=== PATIENT | female | born 1985 | race Caucasian/White ===

== ENCOUNTER 2016-08-10 18:17 | Emergency (ER) | payer MEDICAID ==
[~2016-08-10] VITALS: Wt 80.0 kg
--- NOTE | 2016-08-10 21:07 | ERD ---
ER Documentation Chief Complaint Date/Time DATE: 08/10/16 TIME: 21:03 Chief Complaint pelvic pain HPI Patient is a 30-year-old female, , who presents emergency department with pelvic pain. Patient states her pain has been localized to the suprapubic region for the last 2 days. Patient denies any vaginal bleeding or excessive vaginal discharge. Patient was referred to the ER by her [facility] doctor payment for an ultrasound. Patient is complaining of some nausea and vomiting. Patient states that she has 2 episodes of nonbloody nonbilious vomiting today. Patient denies any fever, chills, chest pain, shortness of breath, abdominal pain or loss of consciousness. Patient states her last menstrual period was on June 17, 2015. ROS All systems reviewed and are negative except as per history of present illness. Medications Home Meds Active Scripts Metoclopramide* (Reglan*) 10 Mg Tablet, 10 MG PO Q6 Y for NAUSEA AND/OR VOMITING , #10 TAB Prov:ANA GOMEZ PA-C 08/10/16 Allergies Allergies: Coded Allergies: No Known Allergy (Unverified , 08/10/16) PMhx/Soc History of Surgery: No Anesthesia Reaction: No Hx Neurological Disorder: No Hx Respiratory Disorders: No Hx Cardiac Disorders: No Hx Psychiatric Problems: No Hx Miscellaneous Medical Probl: No Hx Alcohol Use: No Hx Substance Use: No Hx Tobacco Use: No Physical Exam Vitals Vital Signs Date Time Temp Pulse Resp B/P Pulse Ox O2 Delivery O2 Flow Rate FiO2 08/10/16 23:56 98.5 78 122/68 100 Room Air 08/10/16 18:57 99.3 88 20 130/68 98 Physical Exam GENERAL: Well-developed, well-nourished female. Appears in no acute distress. HEAD: Normocephalic, atraumatic. EYES: Pupils are equally reactive bilaterally. EOMs grossly intact. No conjunctival erythema. ENT: Moist mucous membranes. No uvula deviation. No kissing tonsils. NECK: Supple. No meningismus. Normal range of motion of the neck. LUNG: Clear to auscultation bilaterally. No rhonchi, wheezing, rales or coarse breath sounds. HEART: Regular rate and rhythm. No murmurs, rubs or gallops. ABDOMEN: No scars, ecchymosis or rashes noted. Soft and nondistended. Tender to palpation in suprapubic region. Positive bowel sounds in all four quadrants. No rebound tenderness, no guarding. (-) McBurney's point tenderness. No CVA tenderness. BACK: No midline tenderness. EXTREMITIES: Equal pulses bilaterally. No peripheral clubbing, cyanosis or edema. No unilateral leg swelling. NEUROLOGIC: Alert and oriented. Moving all four extremities without any difficulty. Normal speech. Steady gait. SKIN: Normal color. Warm and dry. No rashes or lesions. Result Diagram: 08/10/162137 Results 24 hrs Laboratory Tests Test 08/10/16 21:32 08/10/16 21:38 Bedside Urine Blood Negative Bedside Urine Glucose (UA) Negative Bedside Urine Ketones (LAB) Negative Bedside Urine Leukocyte Esterase (L Negative Bedside Urine Nitrite (LAB) Negative Bedside Urine Protein (LAB) Negative Bedside Urine pH (LAB) 7.0 Basophils # 0.010^3/ul Basophils % 0.5% Beta HCG, Quantitative 53324.0mIU/ml Eosinophils # 0.110^3/ul Eosinophils % 1.2% Hematocrit 33.8% Hemoglobin 11.5g/dl Lymphocytes # 2.410^3/ul Lymphocytes % 28.0% Mean Corpuscular Hemoglobin 30.5pg Mean Corpuscular Hemoglobin Concent 34.0g/dl Mean Corpuscular Volume 89.7fl Mean Platelet Volume 10.4fl Monocytes # 0.510^3/ul Monocytes % 5.4% Neutrophils # 5.610^3/ul Neutrophils % 64.6% Nucleated Red Blood Cells # 0.010^3/ul Nucleated Red Blood Cells % 0.0/100WBC Platelet Count 42869^3/UL Red Blood Count 3.7710^6/ul Red Cell Distribution Width 13.4% White Blood Count 8.610^3/ul Current Medications Medications (Trade) Dose Ordered Sig/Elier Route PRN Reason Start Time Stop Time Status Last Admin Dose Admin Metoclopramide HCl (Reglan) 10 mg ONCE ONCE PO 08/10/16 21:30 08/10/16 21:31 DC 08/10/16 21:37 Procedures/MDM ED COURSE: The patient was stable throughout ED course. I kept the patient and/or family informed of laboratory and diagnostic imaging results throughout the ED course. DIAGNOSTIC IMAGING: Read by radiologist. DIAGNOSTIC IMAGING REPORT Patient: DEB BURNETTE : 1985 Age: 30 Sex: F MR #: [id number] DOS: 08/10/16 210 Ordering MD: ANA GOMEZ PA-C Location: [facility] Room/Bed: PROCEDURE: US OB. CLINICAL INDICATION: Pelvic pain TECHNIQUE: Transabdominal and transvaginal views of the pelvis are available for review. COMPARISON: No prior studies are available for comparison. FINDINGS: Intrauterine gestational sac, yolk sac and pole of the following information: [place]-rump length: 0.43 cm heart rate: NOT DETECTED Gestational sac: 2.09 cm Ultrasound estimated gestational age: 6 weeks 4 days Crescentic hypoechoic area adjacent to the gestational sac is estimated at 1.2 x 1 cm consistent with a small subchorionic hemorrhage The right ovary is normal estimated 2.7 x 2.4 x 2.3 cm with normal blood flow. The left ovary is not visualized. There is no free fluid. RPTAT:HJJR IMPRESSION: 1. No detectable heart beat concerning for embryonic demise at an estimated gestational age of 6 weeks 4 days. Follow-up serial serum beta HCG levels and possibly follow-up pelvic ultrasound is recommended. 2. Small subchorionic hemorrhage of approximately 1.2 x 1 cm. Physician Nuvia Date Time Electronically viewed and signed by Physician Nuvia on 08/10/2016 21:57 JR/ CC: ANA GOMEZ PA-C MEDICAL DECISION MAKING: This is a 30-year-old female who presents with pelvic pain 2 days. Vital signs were reviewed. Patient was afebrile. Patient was hemodynamically stable. Urine test was positive. CBC showed hemoglobin level of 11.5 , hematocrit of 33.8. This is consistent with slight anemia. Quantitative b- HCG was 24134. She was A+. No Rhogam was given. Pelvic US showed no detectable heart beat concerning for embryonic demise at an estimated gestational age of 6 weeks 4 days. Follow-up serial serum beta HCG levels and possibly follow-up pelvic ultrasound is recommended. Small subchorionic hemorrhage of approximately 1.2 x 1 cm. Given these findings, the patient's presentation is most consistent with threatened vs demise and subchorionic hemorrhage. Patient was advised that she will have to follow-up with her [facility] in 2 days for repeat pelvic ultrasound, beta-hCG level and possible D&C. I have a much lower clinical concern for ectopic , ruptured ectopic , molar , spontaneous , anembyronic . Unable to rule out incomplete . PRESCRIPTIONS: Reglan DISCHARGE: At this time, patient is stable for discharge and outpatient management. I had a conversation at length with the patient about the concerns of pelvic during the 1st trimester of . I discussed the patient's ultrasound findings with her. Patient understands the ultrasound findings could represent demise. I have instructed the patient to follow-up with her OBGYN in 1-2 days for further monitoring including a repeat b-HCG level and pelvic ultrasound as advised by radiologist. Patient understands that she may need a D&C. I have instructed the patient to promptly return to the ER at any time for any new or worsening symptoms including increased pain, nausea, vomiting, continued bleeding, weakness, syncope or fever. The patient and/or family expressed understanding of and agreement with this plan. All questions were answered. Home care instructions were provided. Departure Diagnosis: Primary Impression: Pelvic pain affecting Additional Impressions: demise Subchorionic hematoma Fetus number: single or unspecified fetus Trimester: unspecified trimester Qualified Code: O41.8X90 - Subchorionic hematoma, unspecified trimester, not applicable or unspecified fetus Condition: Stable Patient Instructions: Pelvic Pain In : Unclear (2-3 Trimester) Referrals: COMMUNITY CLINICS YOU HAVE RECEIVED A MEDICAL SCREENING EXAM AND THE RESULTS INDICATE THAT YOU DO NOT HAVE A CONDITION THAT REQUIRES URGENT TREATMENT IN THE EMERGENCY DEPARTMENT. FURTHER EVALUATION AND TREATMENT OF YOUR CONDITION CAN WAIT UNTIL YOU ARE SEEN IN YOUR DOCTORS OFFICE WITHIN THE NEXT 1-2 DAYS. IT IS YOUR RESPONSIBILITY TO MAKE AN APPOINTMENT FOR FOLOW-UP CARE. IF YOU HAVE A PRIMARY DOCTOR --you should call your primary doctor and schedule an appointment IF YOU DO NOT HAVE A PRIMARY DOCTOR YOU CAN CALL OUR PHYSICIAN REFERRAL HOTLINE AT IF YOU CAN NOT AFFORD TO SEE A PHYSICIAN YOU CAN CHOSE FROM THE FOLLOWING [facility] [address] [facility] [address] [facility] [phone] [facility] [address] [facility] [address] [facility]. [facility]. [address] [facility]. [facility] YOU HAVE RECEIVED A MEDICAL SCREENING EXAM AND THE RESULTS INDICATE THAT YOU DO NOT HAVE A CONDITION THAT REQUIRES URGENT TREATMENT IN THE EMERGENCY DEPARTMENT. FURTHER EVALUATION AND TREATMENT OF YOUR CONDITION CAN WAIT UNTIL YOU ARE SEEN IN YOUR DOCTORS OFFICE WITHIN THE NEXT 1-2 DAYS. IT IS YOUR RESPONSIBILITY TO MAKE AN APPOINTMENT FOR FOLOW-UP CARE. IF YOU HAVE A PRIMARY DOCTOR --you should call your primary doctor and schedule and appointment IF YOU DO NOT HAVE A PRIMARY DOCTOR YOU CAN CALL OUR PHYSICIAN REFERRAL HOTLINE AT . IF YOU CAN NOT AFFORD TO SEE A PHYSICIAN YOU CAN CHOSE FROM THE FOLLOWING [facility] INSTITUTIONS: [facility] [address] [place] [address] [facility] [address] [place] [address] [facility] [address] [place] [address] [facility] [employer] [place] [address] [facility] [address] [place], [place] [phone] OFFICE FAX VICTORIA PETTIT [address] [place] [address] [address] [address] [place], [place] [phone] JOE VAZQUEZ [address] [address] [address] [facility] [place] [id number] [facility] [address] [place] [phone] [facility] [address] [address] [facility] [address] [address]ELBY, [place] [address] [facility]. [address], [facility] [address] [address] CAREY, [facility] [address] [place] [address] Additional Instructions: Call your primary care doctor/OBGYN TOMORROW for an appointment during the next 1-2 days.See the doctor sooner or return here if your condition worsens before your appointment time. ANA GOMEZ PA-C Aug 10, 2016 21:06
[2016-08-10] MEDS ORDERED: METOCLOPRAMIDE 10 MG TAB PO ONE (21:30)
[2016-08-10 21:35] LABS: URINE BLOOD (Dip) POC Negative (NEGATIVE)
--- NOTE | 2016-08-10 21:57 | RADRPT ---
PROCEDURE: US OB. CLINICAL INDICATION: Pelvic pain TECHNIQUE: Transabdominal and transvaginal views of the pelvis are available for review. COMPARISON: No prior studies are available for comparison. FINDINGS: Intrauterine gestational sac, yolk sac and pole of the following information: [place]-rump length:0.43 cm heart rate:NOT DETECTED Gestational sac:2.09 cm Ultrasound estimated gestational age:6 weeks 4 days [place] hypoechoic area adjacent to the gestational sac is estimated at 1.2 x 1 cm consistent wit h a small subchorionic hemorrhage The right ovary is normal estimated 2.7 x 2.4 x 2.3 cm with normal blood flow. The left ovary is no t visualized. There is no free fluid. RPTAT:HJJR IMPRESSION: 1. No detectable heart beat concerning for embryonic demise at an estimated gestational age of 6 we eks 4 days. Follow-up serial serum beta HCG levels and possibly follow-up pelvic ultrasound is rec ommended. 2. Small subchorionic hemorrhage of approximately 1.2 x 1 cm. Physician Nuvia Date Time Electronically viewed and signed by Physician Nuvia on 08/10/2016 21:57 /
[2016-08-10 22:04] LABS: ADD SCAN DIFF NO
[2016-08-10 22:06] LABS: BASOPHILS % 0.5 % (0.0-2.0); EOSINOPHILS # 0.1 10^3/ul (0.0-0.5); EOSINOPHILS % 1.2 % (0.0-7.0); HEMATOCRIT 33.8 % (37.0-47.0); HEMOGLOBIN 11.5 g/dl (12.0-16.0); LYMPHOCYTES # 2.4 10^3/ul (0.8-2.9); MEAN CORPUSCULAR HEMOGLOBIN 30.5 pg (29.0-33.0); MEAN CORPUSCULAR VOLUME 89.7 fl (82.0-101.0); MEAN PLATELET VOLUME 10.4 fl (7.4-10.4); MONOCYTE # 0.5 10^3/ul (0.3-0.9); MONOCYTES % 5.4 % (0.0-11.0); NEUTROPHIL # 5.6 10^3/ul (1.6-7.5); NEUTROPHILS % 64.6 % (39.0-77.0); PLATELET COUNT 227 10^3/UL (140-415); RED BLOOD COUNT 3.77 10^6/ul (4.20-5.40); RED CELL DISTRIBUTION WIDTH 13.4 % (11.5-14.5); WHITE BLOOD COUNT 8.6 10^3/ul (4.8-10.8)
[2016-08-10] MEDS ORDERED: METO10TA92 PO (23:37)
[2016-08-10 23:56] VITALS: BP 122/68; PULSE 78; TEMP 98.5
== END 2016-08-11 00:07 | disposition home or self-care (01) ==
LOC: FTE 18:17
DX: O26.891 Other specified pregnancy related conditions, first trimester (principal); O02.1 Missed abortion; O41.8X10 Other specified disorders of amniotic fluid and membranes, first trimester, not applicable or unspecified; R10.2 Pelvic and perineal pain; Z3A.01 Less than 8 weeks gestation of pregnancy
CPT/HCPCS: 36415; 76801; 76817; 81003; 84702; 85025; 86900; 86901; Z7502; Z7610

== ENCOUNTER 2017-05-09 18:21 | Emergency (ER) | payer MEDICAID ==
[~2017-05-09] VITALS: Ht 170.2 cm; Wt 79.0 kg
[~2017-05-09 18:21] MED LIST: METO10TA92 PO
[2017-05-09 19:26] VITALS: Ht 170.2 cm; Wt 79.0 kg
[2017-05-09 22:19] LABS: ADD UMIC NO; UR ASCORBIC ACID NEGATIVE (NEGATIVE); UR BILIRUBIN (Dip) NEGATIVE (NEGATIVE); UR BLOOD (Dip) NEGATIVE (NEGATIVE); UR CLARITY CLEAR (CLEAR); UR COLOR YELLOW (YELLOW); UR GLUCOSE (Dip) NEGATIVE (NEGATIVE); UR KETONES (Dip) NEGATIVE (NEGATIVE); UR LEUKOCYTE ESTERASE (Dip) NEGATIVE Leu/ul (NEGATIVE); UR NITRITE (Dip) NEGATIVE (NEGATIVE); UR SPECIFIC GRAVITY (Dip) 1.012 (1.003-1.030); UR TOTAL PROTEIN (Dip) NEGATIVE (NEGATIVE); UR UROBILINOGEN (Dip) NEGATIVE (NEGATIVE)
--- NOTE | 2017-05-09 22:30 | RADRPT ---
PROCEDURE: US OB. CLINICAL INDICATION: Pelvic pain. Possible IUD. TECHNIQUE: Transabdominal sonographic evaluation of the pelvis using sanchez scale and color Doppler i maging was performed. COMPARISON: Exam is 08/10/2016. FINDINGS: A single intrauterine with a gestational sac and pole is identified. The crown-rump length equals 4.72 cm. The estimated gestational age equals 11 weeks 4 days by ultrasound criteria. Normal cardiac activity is identified with a HR of 188 bpm. There is a small subchorionic hemorrhage measuring 2 x 0.4 x 1.0 cm. Right ovary: 5.0 x 2.6 x 3.7 cm. Simple appearing cyst measuring 2 cm. Otherwise normal in size and echogenicity. Left ovary: 4.0 x 1.9 x 2.5 cm. Normal flow and echogenicity IMPRESSION: 1. Single viable intrauterine with an estimated gestational age of 11 weeks 4 days by ult rasound criteria and an estimated date of delivery of 11/24/2017. 2. Small subchorionic hemorrhage measuring 2 x 0.4 x 1 cm. Short interval follow-up is recommended. 3. Simple appearing 2 cm right ovarian cyst. RPTAT: HLBP .Hector Mcadams MD, MD Date Time Electronically viewed and signed by .Hector Mcadams MD, on 05/09/2017 22:30 .P/
[2017-05-10 00:22] LABS: BASOPHILS % 0.5 % (0.0-2.0); EOSINOPHILS # 0.1 10^3/ul (0.0-0.5); EOSINOPHILS % 0.8 % (0.0-7.0); HEMATOCRIT 34.4 % (37.0-47.0); LYMPHOCYTES # 2.6 10^3/ul (0.8-2.9); LYMPHOCYTES % 30.8 % (15.0-51.0); MEAN CORPUSCULAR HEMOGLOBIN 30.8 pg (29.0-33.0); MEAN CORPUSCULAR HGB CONC 34.9 g/dl (32.0-37.0); MEAN CORPUSCULAR VOLUME 88.4 fl (82.0-101.0); MEAN PLATELET VOLUME 10.3 fl (7.4-10.4); MONOCYTE # 0.5 10^3/ul (0.3-0.9); MONOCYTES % 5.5 % (0.0-11.0); NEUTROPHIL # 5.3 10^3/ul (1.6-7.5); PLATELET COUNT 219 10^3/UL (140-415); RED BLOOD COUNT 3.89 10^6/ul (4.20-5.40); RED CELL DISTRIBUTION WIDTH 13.2 % (11.5-14.5); WHITE BLOOD COUNT 8.5 10^3/ul (4.8-10.8)
--- NOTE | 2017-05-10 01:50 | ERD ---
ER Documentation Chief Complaint Chief Complaint referral from md office for ultrasound for iud placement check 11 wks preg HPI 31-year-old female presenting to the ER for ultrasound. Patient was sent by her PMD for a pelvic ultrasound. Patient is 11 weeks and was unsure if she had an IUD placed within the pelvic region. LNMP February 17. A1. Denies vaginal bleeding. Patient was sent by Dr. Jain. Denies vomiting. Denies bleeding. Denies pelvic pain. ROS All systems reviewed and are negative except as per history of present illness. Medications Home Meds Active Scripts Metoclopramide* (Reglan*) 10 Mg Tablet, 10 MG PO Q6 Y for NAUSEA AND/OR VOMITING , #10 TAB Prov:ANA GOMEZ PA-C 08/10/16 Allergies Allergies: Coded Allergies: No Known Allergy (Unverified , 05/09/17) PMhx/Soc Medical and Surgical Hx: pt denies Medical Hx History of Surgery: Yes ( X5) Anesthesia Reaction: No Hx Neurological Disorder: No Hx Respiratory Disorders: No Hx Cardiac Disorders: No Hx Psychiatric Problems: No Hx Miscellaneous Medical Probl: No Hx Alcohol Use: No Hx Substance Use: No Hx Tobacco Use: No Physical Exam Vitals Vital Signs Date Time Temp Pulse Resp B/P Pulse Ox O2 Delivery O2 Flow Rate FiO2 05/09/17 19:26 98.6 82 26 126/81 100 Physical Exam GENERAL: The patient is well-appearing, well-nourished, in no acute distress HEENT: Atraumatic. Conjunctivae are pink. Pupils equal, round, and reactive to light. There is no scleral icterus. Tympanic membranes clear bilaterally. Oropharynx clear. No nystagmus or photophobia. NECK: C-spine is soft and supple. There is no meningismus. There is no cervical lymphadenopathy. CHEST: Clear to auscultation bilaterally. There are no rales, wheezes or rhonchi. HEART: Regular rate and rhythm. No murmurs, clicks, rubs or gallops. No S3 or S4. ABDOMEN:Soft, nontender and nondistended. Good bowel sounds. No rebound or guarding. No gross peritonitis. No gross organomegaly or masses. No Arguello sign or McBurney point tenderness. Result Diagram: 05/10/17 0002 Results 24 hrs Laboratory Tests Test 05/09/17 21:35 05/10/17 00:02 Urine Color YELLOW Urine Clarity CLEAR Urine pH 7.0 Urine Specific [place] 1.012 Urine Ketones NEGATIVEmg/dL Urine Nitrite NEGATIVEmg/dL Urine Bilirubin NEGATIVEmg/dL Urine Urobilinogen NEGATIVEmg/dL Urine Leukocyte Esterase NEGATIVELeu/ul Urine Hemoglobin NEGATIVEmg/dL Urine Glucose NEGATIVEmg/dL Urine Total Protein NEGATIVEmg/dl White Blood Count 8.510^3/ul Red Blood Count 3.8910^6/ul Hemoglobin 12.0g/dl Hematocrit 34.4% Mean Corpuscular Volume 88.4fl Mean Corpuscular Hemoglobin 30.8pg Mean Corpuscular Hemoglobin Concent 34.9g/dl Red Cell Distribution Width 13.2% Platelet Count 61311^3/UL Mean Platelet Volume 10.3fl Neutrophils % 62.0% Lymphocytes % 30.8% Monocytes % 5.5% Eosinophils % 0.8% Basophils % 0.5% Nucleated Red Blood Cells % 0.0/100WBC Neutrophils # 5.310^3/ul Lymphocytes # 2.610^3/ul Monocytes # 0.510^3/ul Eosinophils # 0.110^3/ul Basophils # 0.010^3/ul Nucleated Red Blood Cells # 0.010^3/ul Beta HCG, Quantitative 02886.0mIU/ml Procedures/MDM DIAGNOSTIC IMAGING REPORT Patient: DEB BURNETTE : 1985 Age: 31 Sex: F MR #: [id number] DOS: 05/09/172121 Ordering MD: JESE ARZATE PA-C Location: [facility] Room/Bed: PROCEDURE: US OB. CLINICAL INDICATION: Pelvic pain. Possible IUD. TECHNIQUE: Transabdominal sonographic evaluation of the pelvis using sanchez scale and color Doppler imaging was performed. COMPARISON: Exam is 08/10/2016. FINDINGS: A single intrauterine with a gestational sac and pole is identified. The crown-rump length equals 4.72 cm. The estimated gestational age equals 11 weeks 4 days by ultrasound criteria. Normal cardiac activity is identified with a HR of 188 bpm. There is a small subchorionic hemorrhage measuring 2 x 0.4 x 1.0 cm. Right ovary: 5.0 x 2.6 x 3.7 cm. Simple appearing cyst measuring 2 cm. Otherwise normal in size and echogenicity. Left ovary: 4.0 x 1.9 x 2.5 cm. Normal flow and echogenicity IMPRESSION: 1. Single viable intrauterine with an estimated gestational age of 11 weeks 4 days by ultrasound criteria and an estimated date of delivery of . 2. Small subchorionic hemorrhage measuring 2 x 0.4 x 1 cm. Short interval follow-up is recommended. 3. Simple appearing 2 cm right ovarian cyst. MDM: 31-year-old female presenting for ultrasound to rule out IUD within the uterus. No ideas appreciated on ultrasound. I have low suspicion for ectopic . I have low suspicion for pelvic or abnormalities. Patient 's ultrasound is within normal limits and blood work is within normal limits. Patient is discharged and recommended to follow-up with her PRIMARY CARE PROVIDER within the next 1-2 days. Patient was told symptoms change or worsen to return to the ER immediately. This is answered discharge. Patient does not require RhoGam injection as she has Rh+. Patient's urine is within normal limits. And blood is stable. Departure Diagnosis: Primary Impression: Condition: Stable Patient Instructions: , Established, Normal Symptoms Additional Instructions: FOLLOW UP WITH YOUR PRIMARY CARE PHYSICIAN TOMORROW.Return to this facility if you are not improving as expected. HAO ARZATE PA-C May 10, 2017 01:50
== END 2017-05-10 03:51 | disposition left against medical advice (07) ==
LOC: FTE 18:21
DX: O26.891 Other specified pregnancy related conditions, first trimester (principal); R10.2 Pelvic and perineal pain; Z3A.11 11 weeks gestation of pregnancy
CPT/HCPCS: 76801; 81003; 84702; 85025; 86900; 86901; Z7502

== ENCOUNTER 2017-10-23 00:30 | Inpatient (IN) | END 2017-10-26 16:44 | disposition home or self-care (01) | DRG 765 ==